=== PATIENT | male | born 1960 | race Caucasian/White ===

== ENCOUNTER 2019-10-01 03:28 | Emergency (ER) | payer OTHER ==
[~2019-10-01] VITALS: Ht 167.6 cm; Wt 104.3 kg
[2019-10-01 03:46] VITALS: Ht 167.6 cm; Wt 104.3 kg
[2019-10-01 04:09] VITALS: BP 128/80
== END 2019-10-01 04:09 | disposition other institution (70) ==
LOC: ED 03:28
DX: Z02.89 Encounter for other administrative examinations (principal)